=== PATIENT | male | born 1960 | race Caucasian/White ===

== ENCOUNTER 2017-04-25 18:51 | Emergency (ER) | payer BC ==
[2017-04-25 19:04] VITALS: TEMP 98.1
--- NOTE | 2017-04-25 19:53 | ED ---
General Adult HPI - General Chief complaint: Extremity Injury, Lower Stated complaint: Vericose Vein/L leg swelling Source: patient, RN notes reviewed Mode of arrival: ambulatory Limitations: no limitations - History of Present Illness Initial comments: This is a 56-year-old male who presents emergency department complaining of a strange sensation to the anterior aspect of his left lower leg. Patient states he was at work today and thought that there was more swelling than usual. He also thought there was a warm feeling to the muñ[place] area. Patient denied any erythema. He denies any prolonged immobilization. No recent injury. No calf pain. No distal paresthesias. No proximal pain. No shortness of breath or chest pain. No fever or chills. No skin rashes or lesions. Patient does have a history of varicosities and always has more swelling to the left lower leg when compared to the right. He states as been going on for "years." - Related Data Home Medications Medication Instructions Recorded Confirmed Aspirin EC [Ecotrin Low Dose] 81 mg PO DAILY 04/25/17 04/25/17 Losartan/Hydrochlorothiazide 1 tab PO DAILY 04/25/17 04/25/17 [Losartan-Hctz 100-12.5 mg Tab] Allergies Allergy/AdvReac Type Severity Reaction Status Date / Time No Known Allergies Allergy Verified 04/25/17 19:17 Review of Systems ROS Statement: Those systems with pertinent positive or pertinent negative responses have been documented in the HPI. ROS Other: All systems not noted in ROS Statement are negative. Past Medical History Past Medical History: Hypertension History of Any Multi-Drug Resistant Organisms: None Reported Past Surgical History: Hernia Repair, Orthopedic Surgery Additional Past Surgical History / Comment(s): rt bicep tendon repaired, rt thumb surgery Past Anesthesia/Blood Transfusion Reactions: Previous Problems w/ Anesthesia Additional Past Anesthesia/Blood Transfusion Reaction / Comment(s): "diff coming out" Past Psychological History: No Psychological Hx Reported Smoking Status: Never smoker Past Alcohol Use History: Rare Past Drug Use History: None Reported - Past Family History Father Family Medical History: Cancer General Exam - General Exam Comments Initial Comments: Well-developed, well-nourished 56-year-old male in no distress Limitations: no limitations General appearance: alert, in no apparent distress Head exam: Present: atraumatic, normocephalic, normal inspection Eye exam: Present: normal appearance, EOMI. Absent: scleral icterus, conjunctival injection ENT exam: Present: normal exam, mucous membranes moist Neck exam: Present: normal inspection Respiratory exam: Present: normal lung sounds bilaterally. Absent: respiratory distress, wheezes, rales, rhonchi, stridor Cardiovascular Exam: Present: regular rate, normal rhythm, normal heart sounds. Absent: systolic murmur, diastolic murmur, rubs, gallop, clicks Extremities exam: Present: normal inspection, full ROM, normal capillary refill , other (Homans sign is negative, patient does have varicose veins noted which are worse on the left, patient has large varicosity to the anterior aspect of his left lower leg. There is no evidence of infectious process. No erythema. No lymphangitis. No palpable cord. No break in skin integrity. Pedal pulses are 2+ out of 4 bilaterally. Capillary refills less than 2 seconds.). Absent: tenderness, joint swelling, calf tenderness Back exam: Present: normal inspection Neurological exam: Present: alert, oriented X3, CN II-XII intact Psychiatric exam: Present: normal affect, normal mood Skin exam: Present: warm, dry, intact, normal color. Absent: rash Course Vital Signs 04/25/17 19:00 Temperature 98.1 F Pulse Rate 65 Respiratory 18 Rate Blood Pressure 153/85 O2 Sat by Pulse 99 Oximetry - Reevaluation(s) Reevaluation #1: 04/25/17 21:02 Patient was reevaluated and is unchanged. 04/25/17 21:02 Medical Decision Making - Medical Decision Making Patient has no evidence of calf tenderness. Patient does have edema which is worse on the left when compared to the right. DVT well score is 1 Return and follow-up parameters discussed. The patient was found to be hypertensive in the ER today. Findings were reviewed with the patient. Patient was advised to follow-up with the primary care physician for further evaluation of blood pressure. Venous Doppler negative for DVT. Patient was informed of slight increase in BUN /creatinine. - Lab Data Result diagrams: 04/25/17 20:00 04/25/17 20:00 Lab Results 04/25/17 04/25/17 Range/Units 20:00 20:00 WBC 7.6 (3.8-10.6) k/uL RBC 4.94 (4.30-5.90) m/uL Hgb 15.1 (13.0-17.5) gm/dL Hct 44.8 (39.0-53.0) % MCV 90.8 (80.0-100.0) fL MCH 30.6 (25.0-35.0) pg MCHC 33.7 (31.0-37.0) g/dL RDW 14.7 (11.5-15.5) % Plt Count 187 (150-450) k/uL Neutrophils % 49 % Lymphocytes % 38 % Monocytes % 7 % Eosinophils % 2 % Basophils % 1 % Neutrophils # 3.7 (1.3-7.7) k/uL Lymphocytes # 2.9 (1.0-4.8) k/uL Monocytes # 0.5 (0-1.0) k/uL Eosinophils # 0.1 (0-0.7) k/uL Basophils # 0.1 (0-0.2) k/uL Sodium 143 (137-145) mmol/L Potassium 4.3 (3.5-5.1) mmol/L Chloride 106 (98-107) mmol/L Carbon Dioxide 28 (22-30) mmol/L Anion Gap 9 mmol/L BUN 22 H (9-20) mg/dL Creatinine 1.28 H (0.66-1.25) mg/dL Est GFR (MDRD) Af Amer >60 (>60 ml/min/1.73 sqM) Est GFR (MDRD) Non-Af 59 (>60 ml/min/1.73 sqM) Glucose 100 H (74-99) mg/dL Calcium 9.3 (8.4-10.2) mg/dL Disposition Clinical Impression: Varicose vein of leg, Edema of left lower leg due to peripheral venous insufficiency Disposition: HOME SELF-CARE Condition: Good Instructions: Varicose Veins (ED), Leg Edema (ED) Additional Instructions: Ensure that you make a follow-up with your regular physician for reevaluation of her blood pressure and monitoring of her kidney function. The patient was found to be hypertensive in the ER today. Findings were reviewed with the patient. Patient was advised to follow-up with the primary care physician for further evaluation of blood pressure. Return to the ER at once if the symptoms worsen or problems or difficulties arise. Elevate her leg as much as possible. Referrals: Immanuel Vasquez MD [Primary Care Provider] - 1-2 days Time of Disposition: 21:03
[2017-04-25] MEDS ORDERED: TOPICAL SKIN ADHESIVE 1 EACH AMP TOPICAL ONE ×2 (20:04→20:06)
[2017-04-25 20:15] LABS: Anion Gap 9 mmol/L; Blood Urea Nitrogen 22 mg/dL (9-20); Calcium 9.3 mg/dL (8.4-10.2); Carbon Dioxide 28 mmol/L (22-30); Chloride 106 mmol/L (98-107); Glucose 100 mg/dL (74-99); Non-African American GFR(MDRD) 59 (>60 ml/min/1.73 sqM); Potassium 4.3 mmol/L (3.5-5.1); Sodium 143 mmol/L (137-145)
[2017-04-25 20:21] LABS: Basophils # (A) 0.1 k/uL (0-0.2); Basophils % (A) 1 %; CH 31.6; CHCM 35.1; Eosinophils # (A) 0.1 k/uL (0-0.7); Eosinophils % (A) 2 %; HCT 44.8 % (39.0-53.0); HDW 2.64; HGB 15.1 gm/dL (13.0-17.5); Luc # (Auto) 0.27; Luc % (Auto) 4; Lymphocytes # (A) 2.9 k/uL (1.0-4.8); Lymphocytes % (A) 38 %; MCH 30.6 pg (25.0-35.0); MCHC 33.7 g/dL (31.0-37.0); MCV 90.8 fL (80.0-100.0); Mean Platelet Volume 8.8; Monocytes # (A) 0.5 k/uL (0-1.0); Monocytes % (A) 7 %; Neutrophils # (A) 3.7 k/uL (1.3-7.7); Neutrophils % (A) 49 %; RBC 4.94 m/uL (4.30-5.90); RDW 14.7 % (11.5-15.5); WBC 7.6 k/uL (3.8-10.6); WBC (Perox) 7.39
--- NOTE | 2017-04-25 20:54 | US ---
EXAMINATION TYPE: US venous doppler duplex LE LT DATE OF EXAM: 04/25/2017 8:39 PM COMPARISON: NONE CLINICAL HISTORY: Pain. SIDE PERFORMED: Left TECHNIQUE: The lower extremity deep venous system is examined utilizing real time linear array sonog kenna with graded compression, doppler sonography and color-flow sonography. VESSELS IMAGED: External Iliac Vein (EIV) Common Femoral Vein Deep Femoral Vein Greater Saphenous Vein * Femoral Vein Popliteal Vein Small Saphenous Vein * Proximal Calf Veins (* superficial vessels) Left Leg: Negative for DVT No evidence of DVT left leg IMPRESSION: Negative exam. No evidence of deep venous thrombosis in the left leg.
[2017-04-25 21:25] VITALS: BP 136/77; PULSE 54; RESP 16
== END 2017-04-25 21:25 | disposition home or self-care (01) ==
LOC: EC 18:51
DX: I83.892 Varicose veins of left lower extremity with other complications (principal); I73.9 Peripheral vascular disease, unspecified; I10 Essential (primary) hypertension; Z79.82 Long term (current) use of aspirin; Z79.899 Other long term (current) drug therapy
CPT/HCPCS: 36415; 80048; 85025; 99284

== ENCOUNTER → 2019-05-04 | Outpatient (CLI) | payer BC ==
--- NOTE | 2019-05-04 09:40 | US ---
EXAMINATION TYPE: US liver DATE OF EXAM: 05/04/2019 COMPARISON: NONE CLINICAL HISTORY: R74.8 Abn LFTs, TECHNIQUE: Multiple sonographic images of the right upper quadrant are obtained. FINDINGS: EXAM MEASUREMENTS: Liver Length: 15.2 cm Gallbladder Wall: 0.1 cm CBD: 0.4 cm Right Kidney: 10.9 x 5.6 x 5.2 cm PRESS LOADER NOTES: Patient of large body habitus. Pancreas: Obscured by bowel gas Liver: Increased attenuation, decreased visualization of vessels vessels. Intercostal windows are ut ilized due to overlying bowel gas. Gallbladder: No abnormal distention, wall thickening, pericholecystic fluid, or shadowing calculi.E vidence for sonographic Zarate's sign: No CBD: wnl Right Kidney: No hydronephrosis. The inferior pole is obscured by overlying bowel gas IMPRESSION: 1. Echogenic appearance to the liver suggests underlying hepatic steatosis. Correlate with LFTs, lipi d profile, and patient risk factors. 2. No cholelithiasis or biliary ductal dilatation.
--- NOTE | 2019-05-04 10:35 | US ---
EXAMINATION TYPE: US thyroid st tissue head/neck DATE OF EXAM: 05/04/2019 COMPARISON: NONE CLINICAL HISTORY: 58-year-old male E04.9 Goiter. TECHNIQUE: Multiple sonographic images of the thyroid gland are obtained. FINDINGS: GLAND SIZE: Right Lobe: 4.4 x 1.6 x 2.0 cm Overall Parenchyma: homogenous Left Lobe: 4.1 x 1.5 x 1.8 cm Overall Parenchyma: homogeneous Isthmus Thickness: 0.2 cm NODULES RIGHT: # of nodules measured on right: 0 LEFT: # of nodules measured on left: 0 ISTHMUS: # of nodules measured in the isthmus: 0 Bilateral neck scanned, no evidence of lymphadenopathy. IMPRESSION: Normal-sized thyroid gland without discrete nodule. IMPRESSION:
== END | disposition home or self-care (01) ==
LOC: RADUSWWP 07:39
PROVIDERS: ATTEND Family Medicine
DX: E04.9 Nontoxic goiter, unspecified (principal); R74.8 Abnormal levels of other serum enzymes
CPT/HCPCS: 76536; 76705

== ENCOUNTER → 2019-09-23 | Outpatient (CLI) | payer BC ==
--- NOTE | 2019-09-23 08:31 | FL ---
EXAMINATION TYPE: FL sniff test without CXR DATE OF EXAM: 09/23/2019 COMPARISON: CT of the same date HISTORY: Shortness of breath TECHNIQUE: Fluoroscopy. 27 seconds of fluoroscopy time was utilized with 0 images saved as the examin ation was simply done under real-time fluoroscopy. FINDINGS: Real-time fluoroscopic imaging was performed to evaluate the hemidiaphragm excursion. 27 se conds of fluoroscopy time was utilized with 0 images saved as the examination was simply done under r eal-time fluoroscopy. The patient has a CT of the same date. The right hemidiaphragm appears sluggish in comparison to the left however there is no paradoxical motion nor complete paralysis. IMPRESSION: Delayed excursion of the right hemidiaphragm in comparison to the left, possibly related to underlying hepatomegaly. The diaphragm does not appear paradoxical or paralyzed.
--- NOTE | 2019-09-23 12:26 | CT ---
EXAMINATION TYPE: CT chest w con DATE OF EXAM: 09/23/2019 COMPARISON: Chest x-ray 09/15/2019 HISTORY: Shortness of breath CT DLP: 660 mGycm Automated exposure control for dose reduction was used. CONTRAST: CT scan of the chest is performed with IV Contrast, patient injected with 100 ml mL of Isovue 300. FINDINGS: LUNGS: The lungs are grossly clear, there is no concerning parenchymal mass or nodule identified. Mi nimal linear scarring present in the right for lobe There is no pleural effusion or pneumothorax seen . The tracheobronchial tree is patent. MEDIASTINUM: There are no greater than 1 cm hilar or mediastinal lymph nodes. No pericardial effusi on is seen. AORTA: No additional significant abnormality is seen. OTHER: Low-attenuation within the liver may be due to hepatic steatosis. IMPRESSION: No abnormality evident to account for patient's symptoms.
== END | disposition home or self-care (01) ==
LOC: RADCTMAIN 07:16
PROVIDERS: ATTEND Internal Medicine Critical Care Medicine
DX: R06.02 Shortness of breath (principal)
CPT/HCPCS: 76000; 71260; Q9967

== ENCOUNTER 2019-11-17 11:27 | Emergency (ER) | payer BC ==
--- NOTE | 2019-11-17 11:53 | ED ---
Chest Pain HPI - General Chief Complaint: Chest Pain Stated Complaint: chest pain Time Seen by Provider: 11/17/19 11:35 Source: patient Mode of arrival: wheelchair Limitations: no limitations - History of Present Illness Initial Comments: The patient is a 59-year-old male with past medical history of hypertension presents to the emergency department with reported chest pain. I did receive a call from the patient's primary care physician, Dr. Vasquez in regards to the patient. He states the patient has had 3 days worth of chest pressure. The patient ate it makes him feel mildly short of breath. He denies any provocative factors. Denies exertional dyspnea. No ripping or tearing sensation to his back. No radiation of the pain. Denies any unilateral numbness or tingling. He denies a cough or hemoptysis. No fevers or chills. Denies diaphoresis, nausea or vomiting. He went into Dr. Vasquez's office where they've completed an EKG. They found the patient had a junctional rhythm with a right bundle-branch block. He had no old to compare to and therefore he sent the patient into the emergent department for further evaluation. The patient did have a stress test last year by Dr. Ellsworth. States that everything was normal. Denies previous history of cardiac disease. No calf pain or swelling. No lower extremity edema. No recent surgeries or travel. No history of DVT or PE. There are no vomiting, precipitating or modifying factors - Related Data Home Medications Medication Instructions Recorded Confirmed Aspirin EC [Ecotrin Low Dose] 81 mg PO DAILY 04/25/17 11/17/19 Melatonin 5 mg PO HS PRN 11/17/19 11/17/19 amLODIPine BESYLATE/BENAZEPRIL 1 cap PO DAILY 11/17/19 11/17/19 [Lotrel 5-40 MG] diphenhydrAMINE [Benadryl] 25 mg PO HS PRN 11/17/19 11/17/19 Allergies Allergy/AdvReac Type Severity Reaction Status Date / Time No Known Allergies Allergy Verified 11/17/19 13:12 Review of Systems ROS Statement: Those systems with pertinent positive or pertinent negative responses have been documented in the HPI. ROS Other: All systems not noted in ROS Statement are negative. EKG Findings - EKG Comments: EKG Findings:: EKG demonstrates a junctional rhythm with a rate of 58. QRS 104. QTC of 100. There is a incomplete right bundle branch block. No acute ST segment elevations or depressions concerning for ischemic changes Past Medical History Past Medical History: Hypertension Additional Past Medical History / Comment(s): diaphragm issues History of Any Multi-Drug Resistant Organisms: None Reported Past Surgical History: Hernia Repair, Orthopedic Surgery Additional Past Surgical History / Comment(s): rt bicep tendon repaired, rt thumb surgery Past Anesthesia/Blood Transfusion Reactions: Previous Problems w/ Anesthesia Additional Past Anesthesia/Blood Transfusion Reaction / Comment(s): "diff coming out" Past Psychological History: No Psychological Hx Reported Smoking Status: Never smoker Past Alcohol Use History: Rare Past Drug Use History: None Reported - Past Family History Father Family Medical History: Cancer General Exam Limitations: no limitations General appearance: alert, in no apparent distress Head exam: Present: atraumatic, normocephalic, normal inspection Eye exam: Present: normal appearance, PERRL, EOMI. Absent: scleral icterus, conjunctival injection, periorbital swelling ENT exam: Present: normal exam, mucous membranes moist Neck exam: Present: normal inspection. Absent: tenderness, meningismus, lymphadenopathy Respiratory exam: Present: normal lung sounds bilaterally. Absent: respiratory distress, wheezes, rales, rhonchi, stridor Cardiovascular Exam: Present: regular rate, normal rhythm, normal heart sounds. Absent: systolic murmur, diastolic murmur, rubs, gallop, clicks GI/Abdominal exam: Present: soft, normal bowel sounds. Absent: distended, tenderness, guarding, rebound, rigid Extremities exam: Present: normal inspection, full ROM, normal capillary refill. Absent: tenderness, pedal edema, joint swelling, calf tenderness Back exam: Present: normal inspection Neurological exam: Present: alert, oriented X3, CN II-XII intact Psychiatric exam: Present: normal affect, normal mood Skin exam: Present: warm, dry, intact, normal color. Absent: rash Course Vital Signs 11/17/19 11/17/19 11/17/19 11:30 12:00 13:00 Temperature 98.1 F Pulse Rate 66 64 54 L Respiratory 19 19 18 Rate Blood Pressure 164/105 126/82 O2 Sat by Pulse 99 96 96 Oximetry 11/17/19 13:36 Temperature 98 F Pulse Rate Respiratory Rate Blood Pressure O2 Sat by Pulse Oximetry Chest Pain MDM - MDM ER upon arrival the patient was placed into room 6. A thorough history and physical exam was performed. 12-lead EKG was performed and the patient which demonstrates a junctional rhythm with a rate of 58. He does bring the EKG from office. I did recommend laboratory studies and a chest x-ray. Laboratory studies are unremarkable. Troponin is negative. Chest x-ray demonstrates some strandy atelectasis suggested at the left lung base. These results with the patient. I did call Dr. Vasquez and discuss results with him. Dr. Vasquez does recommend discharge with follow-up with Dr. Ellsworth in office. He states that he will take care of the patient's referral. He suggested against hospital admission because of the current Covid pandemic for which the patient did fully agree that he did not want remain hospitalized if not absolutely necessary. I did inform the patient that he should return to the emergency room if it is a new or worsening symptoms. He was also have follow-up with Dr. Ellsworth to fully rule out cardiac etiology for his pain. The patient understood this. He was discharged home in stable condition Disposition Clinical Impression: Chest pain Disposition: HOME SELF-CARE Condition: Stable Instructions (If sedation given, give patient instructions): Chest Pain (ED) Additional Instructions: Please follow-up with your primary care doctor in regards to your symptoms. He will write you a referral to Dr. Ellsworth. I do recommend a stress test and possible echo. Return to the emergency room for any new or worsening symptoms Is patient prescribed a controlled substance at d/c from ED?: No Referrals: Immanuel Vasquez MD [Primary Care Provider] - 1-2 days Justice Ellsworth MD [STAFF PHYSICIAN] - 1-2 days Time of Disposition: 13:23
[2019-11-17 11:55] LABS: Basophils # (A) 0.1 k/uL (0-0.2); Basophils % (A) 1 %; Eosinophils # (A) 0.2 k/uL (0-0.7); Eosinophils % (A) 2 %; HCT 48.3 % (39.0-53.0); HGB 16.1 gm/dL (13.0-17.5); Lymphocytes % (A) 36 %; MCH 29.6 pg (25.0-35.0); MCHC 33.3 g/dL (31.0-37.0); MCV 88.9 fL (80.0-100.0); Mean Platelet Volume 8.8; Monocytes # (A) 0.5 k/uL (0-1.0); Monocytes % (A) 6 %; Neutrophils # (A) 4.3 k/uL (1.3-7.7); Neutrophils % (A) 51 %; Platelet Count 193 k/uL (150-450); RBC 5.43 m/uL (4.30-5.90); RDW 13.3 % (11.5-15.5); WBC 8.4 k/uL (3.8-10.6)
[2019-11-17 12:03] LABS: ALT 36 U/L (4-49); AST 34 U/L (17-59); African American GFR (CKD) >90 (>60 ml/min/1.73 sqM); Albumin 4.6 g/dL (3.5-5.0); Alkaline Phosphatase 67 U/L (38-126); Anion Gap 10 mmol/L; Blood Urea Nitrogen 16 mg/dL (9-20); Calcium 9.5 mg/dL (8.4-10.2); Carbon Dioxide 24 mmol/L (22-30); Chloride 105 mmol/L (98-107); Glucose 93 mg/dL (74-99); Non-African American GFR(CKD) >90 (>60 ml/min/1.73 sqM); Potassium 4.6 mmol/L (3.5-5.1); Sodium 139 mmol/L (137-145); Total Bilirubin 0.6 mg/dL (0.2-1.3); Total Protein 7.4 g/dL (6.3-8.2)
[2019-11-17 12:04] LABS: INR 0.9 (<1.2); Partial Thromboplastin Time 24.4 sec (22.0-30.0); Prothrombin Time 9.9 sec (9.0-12.0)
--- NOTE | 2019-11-17 12:12 | XR ---
EXAMINATION TYPE: XR chest 2V DATE OF EXAM: 11/17/2019 COMPARISON: 09/15/2019 HISTORY: 59-year-old male with chest pain TECHNIQUE: PA and lateral views FINDINGS: Heart normal size. Aorta and pulmonary vasculature within normal limits. Some strandy atelectasis at the left base. No other consolidation or pleural effusion seen. IMPRESSION: Some strandy atelectasis suggested at the left base. No acute process otherwise seen.
[2019-11-17 13:16] VITALS: BP 126/82; PULSE 54; RESP 18
[2019-11-17 13:37] VITALS: TEMP 98
== END 2019-11-17 13:36 | disposition home or self-care (01) ==
LOC: EC 11:27
DX: R07.89 Other chest pain (principal); R06.02 Shortness of breath; I10 Essential (primary) hypertension; Z79.82 Long term (current) use of aspirin; Z79.899 Other long term (current) drug therapy
CPT/HCPCS: 36415; 71046; 80053; 83735; 83880; 84484; 85025; 85610; 85730; 93005; 99285

== ENCOUNTER 2021-02-09 09:33 | Emergency (ER) | payer BC, OTHER ==
--- NOTE | 2021-02-09 10:26 | ED ---
General Adult HPI - General Chief complaint: Extremity Problem,Nontraumatic Stated complaint: Swelling in Right leg/SOB Time Seen by Provider: 02/09/21 09:47 Source: patient, RN notes reviewed Mode of arrival: ambulatory Limitations: no limitations - History of Present Illness Initial comments: 60-year-old male with a past medical history of hypertension, enlarged kidney, diaphragm issues presents to the emergency room for a chief complaint of right l eg swelling. Patient has had swelling in his right leg for the past couple weeks. States it comes and goes. He has also had some shortness of breath. States has been ongoing for years but worsened in the past several months. Patient's eyes primary care provider today who wanted him to come to the ER for evaluation. Patient denies any chest pain.Patient has no other complaints at this time including shortness of breath, chest pain, abdominal pain, nausea or vomiting, headache, or visual changes. - Related Data Home Medications Medication Instructions Recorded Confirmed Aspirin EC [Ecotrin Low Dose] 81 mg PO HS 04/25/17 02/09/21 Rosuvastatin [Crestor] 10 mg PO HS 02/09/21 02/09/21 amLODIPine BES/OLMESARTAN MED 1 tab PO HS 02/09/21 02/09/21 [amLODIPine BES/OLMESARTAN MED 10-40 mg] Allergies Allergy/AdvReac Type Severity Reaction Status Date / Time No Known Allergies Allergy Verified 02/09/21 11:11 Review of Systems ROS Statement: Those systems with pertinent positive or pertinent negative responses have been documented in the HPI. ROS Other: All systems not noted in ROS Statement are negative. Past Medical History Past Medical History: Hypertension Additional Past Medical History / Comment(s): diaphragm issues, enlarged kidney History of Any Multi-Drug Resistant Organisms: None Reported Past Surgical History: Hernia Repair, Orthopedic Surgery Additional Past Surgical History / Comment(s): rt bicep tendon repaired, rt thumb surgery Past Anesthesia/Blood Transfusion Reactions: Previous Problems w/ Anesthesia Additional Past Anesthesia/Blood Transfusion Reaction / Comment(s): "diff coming out" Past Psychological History: No Psychological Hx Reported Smoking Status: Never smoker Past Alcohol Use History: Rare Past Drug Use History: None Reported - Past Family History Father Family Medical History: Cancer General Exam Limitations: no limitations General appearance: alert, in no apparent distress Head exam: Present: atraumatic, normocephalic, normal inspection Eye exam: Present: normal appearance, PERRL, EOMI. Absent: scleral icterus, conjunctival injection, periorbital swelling ENT exam: Present: normal exam, mucous membranes moist Neck exam: Present: normal inspection, full ROM. Absent: tenderness, meningismus, lymphadenopathy Respiratory exam: Present: normal lung sounds bilaterally. Absent: respiratory distress, wheezes, rales, rhonchi, stridor Cardiovascular Exam: Present: regular rate, normal rhythm, normal heart sounds. Absent: systolic murmur, diastolic murmur, rubs, gallop, clicks GI/Abdominal exam: Present: soft, normal bowel sounds. Absent: distended, tenderness, guarding, rebound, rigid Extremities exam: Present: full ROM (Full range of motion right leg), normal capillary refill (cap Refill less than 2 seconds, DP pulse 2+ right lower extremity), pedal edema (Minimal pedal edema noted in the right foot and ankle. Nonpitting.). Absent: other (No erythema noted of the right leg.) Neurological exam: Present: alert Course Vital Signs 02/09/21 02/09/21 09:35 13:00 Temperature 97.8 F 98.0 F Pulse Rate 55 L 54 L Respiratory 20 16 Rate Blood Pressure 126/80 118/72 O2 Sat by Pulse 99 97 Oximetry Medical Decision Making - Medical Decision Making Vitals are stable. 97-99% on room air. EKG nonischemic. Laboratory evaluation unremarkable. Troponin and d-dimer are both negative. Chest x-ray shows no acute cardiopulmonary process. Ultrasound of the right lower leg is negative for DVT. Chest x-ray shows no acute cardiopulmonary process. At this time patient is stable for discharge home. He has had shortness of breath for years worsening over several months. He will need to follow up with primary care and cardiology. At this time there is no chest pain. He will also follow up with primary care for leg edema. He was instructed to elevate the leg to continue to wear his compression socks. He will return here for any worsening symptoms. - Lab Data Result diagrams: 02/09/21 10:22 02/09/21 10:22 Lab Results 02/09/21 02/09/21 02/09/21 Range/Units 10:22 10:22 10:22 WBC 8.1 (3.8-10.6) k/uL RBC 4.97 (4.30-5.90) m/uL Hgb 15.2 (13.0-17.5) gm/dL Hct 43.8 (39.0-53.0) % MCV 88.2 (80.0-100.0) fL MCH 30.7 (25.0-35.0) pg MCHC 34.8 (31.0-37.0) g/dL RDW 13.3 (11.5-15.5) % Plt Count 187 (150-450) k/uL MPV 8.8 Neutrophils % 57 % Lymphocytes % 32 % Monocytes % 7 % Eosinophils % 2 % Basophils % 1 % Neutrophils # 4.7 (1.3-7.7) k/uL Lymphocytes # 2.6 (1.0-4.8) k/uL Monocytes # 0.6 (0-1.0) k/uL Eosinophils # 0.1 (0-0.7) k/uL Basophils # 0.1 (0-0.2) k/uL PT 10.2 (9.0-12.0) sec INR 0.9 (<1.2) APTT 23.0 (22.0-30.0) sec D-Dimer <0.17 (<0.60) mg/L FEU Sodium 139 (137-145) mmol/L Potassium 4.4 (3.5-5.1) mmol/L Chloride 104 (98-107) mmol/L Carbon Dioxide 26 (22-30) mmol/L Anion Gap 9 mmol/L BUN 22 H (9-20) mg/dL Creatinine 0.93 (0.66-1.25) mg/dL Est GFR (CKD-EPI)AfAm >90 (>60 ml/min/1.73 sqM) Est GFR (CKD-EPI)NonAf >90 (>60 ml/min/1.73 sqM) Glucose 103 H (74-99) mg/dL Calcium 9.6 (8.4-10.2) mg/dL Magnesium 2.0 (1.6-2.3) mg/dL Total Bilirubin 0.5 (0.2-1.3) mg/dL AST 26 (17-59) U/L ALT 30 (4-49) U/L Alkaline Phosphatase 67 (38-126) U/L Troponin I (0.000-0.034) ng/mL NT-Pro-B Natriuret Pep pg/mL Total Protein 6.7 (6.3-8.2) g/dL Albumin 4.3 (3.5-5.0) g/dL 02/09/21 02/09/21 Range/Units 10:22 10:22 WBC (3.8-10.6) k/uL RBC (4.30-5.90) m/uL Hgb (13.0-17.5) gm/dL Hct (39.0-53.0) % MCV (80.0-100.0) fL MCH (25.0-35.0) pg MCHC (31.0-37.0) g/dL RDW (11.5-15.5) % Plt Count (150-450) k/uL MPV Neutrophils % % Lymphocytes % % Monocytes % % Eosinophils % % Basophils % % Neutrophils # (1.3-7.7) k/uL Lymphocytes # (1.0-4.8) k/uL Monocytes # (0-1.0) k/uL Eosinophils # (0-0.7) k/uL Basophils # (0-0.2) k/uL PT (9.0-12.0) sec INR (<1.2) APTT (22.0-30.0) sec D-Dimer (<0.60) mg/L FEU Sodium (137-145) mmol/L Potassium (3.5-5.1) mmol/L Chloride (98-107) mmol/L Carbon Dioxide (22-30) mmol/L Anion Gap mmol/L BUN (9-20) mg/dL Creatinine (0.66-1.25) mg/dL Est GFR (CKD-EPI)AfAm (>60 ml/min/1.73 sqM) Est GFR (CKD-EPI)NonAf (>60 ml/min/1.73 sqM) Glucose (74-99) mg/dL Calcium (8.4-10.2) mg/dL Magnesium (1.6-2.3) mg/dL Total Bilirubin (0.2-1.3) mg/dL AST (17-59) U/L ALT (4-49) U/L Alkaline Phosphatase (38-126) U/L Troponin I <0.012 (0.000-0.034) ng/mL NT-Pro-B Natriuret Pep 29 pg/mL Total Protein (6.3-8.2) g/dL Albumin (3.5-5.0) g/dL Disposition Clinical Impression: Leg edema, right, Shortness of breath Disposition: HOME SELF-CARE Condition: Good Instructions (If sedation given, give patient instructions): Leg Edema (ED) Additional Instructions: Please follow-up with your doctor in one to 2 days. You should follow up with cardiology as well. Wear compression stockings. Return to the emergency room for any worsening symptoms. Is patient prescribed a controlled substance at d/c from ED?: No Referrals: Immanuel Vasquez MD [Primary Care Provider] - 1-2 days Robert Smith MD [STAFF PHYSICIAN] - 1-2 days Time of Disposition: 12:34
[2021-02-09 10:33] LABS: Basophils # (A) 0.1 k/uL (0-0.2); Basophils % (A) 1 %; Eosinophils # (A) 0.1 k/uL (0-0.7); Eosinophils % (A) 2 %; HCT 43.8 % (39.0-53.0); HGB 15.2 gm/dL (13.0-17.5); Lymphocytes # (A) 2.6 k/uL (1.0-4.8); Lymphocytes % (A) 32 %; MCH 30.7 pg (25.0-35.0); MCHC 34.8 g/dL (31.0-37.0); MCV 88.2 fL (80.0-100.0); Mean Platelet Volume 8.8; Monocytes # (A) 0.6 k/uL (0-1.0); Monocytes % (A) 7 %; Neutrophils # (A) 4.7 k/uL (1.3-7.7); Neutrophils % (A) 57 %; Platelet Count 187 k/uL (150-450); RBC 4.97 m/uL (4.30-5.90); RDW 13.3 % (11.5-15.5); WBC 8.1 k/uL (3.8-10.6)
[2021-02-09 10:49] LABS: ALT 30 U/L (4-49); AST 26 U/L (17-59); African American GFR (CKD) >90 (>60 ml/min/1.73 sqM); Albumin 4.3 g/dL (3.5-5.0); Alkaline Phosphatase 67 U/L (38-126); Anion Gap 9 mmol/L; Blood Urea Nitrogen 22 mg/dL (9-20); Calcium 9.6 mg/dL (8.4-10.2); Carbon Dioxide 26 mmol/L (22-30); Chloride 104 mmol/L (98-107); Glucose 103 mg/dL (74-99); Non-African American GFR(CKD) >90 (>60 ml/min/1.73 sqM); Potassium 4.4 mmol/L (3.5-5.1); Sodium 139 mmol/L (137-145); Total Bilirubin 0.5 mg/dL (0.2-1.3); Total Protein 6.7 g/dL (6.3-8.2)
[2021-02-09 10:54] LABS: D-Dimer <0.17 mg/L FEU (<0.60); INR 0.9 (<1.2); Prothrombin Time 10.2 sec (9.0-12.0)
--- NOTE | 2021-02-09 10:54 | XR ---
EXAMINATION TYPE: XR chest 2V DATE OF EXAM: 02/09/2021 COMPARISON: 11/17/2019 HISTORY: 60-year-old male shortness of breath, difficulty breathing TECHNIQUE: PA and lateral views FINDINGS: The cardiomediastinal silhouette, aorta, and pulmonary vasculature are within normal limits. Strandy left basilar atelectasis. Otherwise, lungs and pleural spaces are clear. IMPRESSION: No acute cardiopulmonary process.
--- NOTE | 2021-02-09 11:22 | US ---
EXAMINATION TYPE: US venous doppler duplex LE RT DATE OF EXAM: 02/09/2021 11:11 AM COMPARISON: None CLINICAL HISTORY: 60-year-old male edema. Right ankle swelling; SOB SIDE PERFORMED: Right TECHNIQUE: The lower extremity deep venous system is examined utilizing real time linear array sonog kenna with graded compression, doppler sonography and color-flow sonography. FINDINGS: VESSELS IMAGED: Common Femoral Vein Deep Femoral Vein Greater Saphenous Vein * Femoral Vein Popliteal Vein Small Saphenous Vein * Proximal Calf Veins Posterior tibial veins (* superficial vessels) Right Leg: Negative for DVT. Ankle edema channels are noted by US. IMPRESSION: No evidence for DVT within the right lower extremity.
[2021-02-09 13:01] VITALS: BP 118/72; PULSE 54; RESP 16; TEMP 98
== END 2021-02-09 13:00 | disposition home or self-care (01) ==
LOC: EC 09:33
DX: R60.0 Localized edema (principal); R06.02 Shortness of breath; I10 Essential (primary) hypertension; Z79.899 Other long term (current) drug therapy
CPT/HCPCS: 36415; 71046; 80053; 83735; 83880; 84484; 85025; 85379; 85610; 85730; 93005; 99285

== ENCOUNTER → 2021-04-29 | Outpatient (CLI) | payer OTHER ==
[2021-04-29 20:09] LABS: African American GFR (CKD) 85.3 (60.0-200.0); Anion Gap 9.7 mmol/L (4.00-12.00); Carbon Dioxide 27.3 mmol/L (21.6-31.8); Non-African American GFR(CKD) 73.6 (60.0-200.0); Potassium 4.2 mmol/L (3.5-5.5)
== END | disposition home or self-care (01) ==
LOC: LABWHC1 09:52
PROVIDERS: ATTEND Internal Medicine Interventional Cardiology
DX: Z01.810 Encounter for preprocedural cardiovascular examination (principal)
CPT/HCPCS: 36415; 80051; 82565; 84520

== ENCOUNTER → 2022-01-25 | Outpatient (CLI) | payer OTHER ==
[2022-01-25 10:37] LABS: Basophils # (A) 0.03 X 10*3/uL (0.00-0.10); Basophils % (A) 0.4 %; Eosinophils # (A) 0.09 X 10*3/uL (0.04-0.35); Eosinophils % (A) 1.3 %; HCT 46.1 % (39.6-50.0); HGB 15.1 g/dL (13.0-17.0); Immature Grans, Automated 0.1 %; Lymphocytes # (A) 2.48 X 10*3/uL (0.90-5.00); Lymphocytes % (A) 36.5 %; MCH 29.4 pg (27.0-32.0); MCHC 32.8 g/dL (32.0-37.0); MCV 89.7 fL (80.0-97.0); Mean Platelet Volume 11.6 fL (9.5-12.2); Monocytes # (A) 0.65 X 10*3/uL (0.20-1.00); Monocytes % (A) 9.6 %; NRBC Per 100 WBC 0 /100 WBCS (0.0-0.0); Neutrophils # (A) 3.54 X 10*3/uL (1.80-7.70); Neutrophils % (A) 52.1 %; Platelet Count 196 X 10*3/uL (140-440); RBC 5.14 X 10*6/uL (4.40-5.60); RDW 13.5 % (11.5-14.5)
[2022-01-25 11:05] LABS: ALT 36 U/L (10-49); AST 19 U/L (14-35); African American GFR (CKD) 84.7 (60.0-200.0); Albumin 4.6 g/dL (3.8-4.9); Alkaline Phosphatase 67 U/L (41-126); BUN/Creat Ratio 18.45 Ratio (12.00-20.00); Blood Urea Nitrogen 20.3 mg/dL (9.0-27.0); C Reactive Protein <0.30 mg/dL (0.00-0.80); Calcium 9.5 mg/dL (8.7-10.3); Carbon Dioxide 30.3 mmol/L (20.0-27.5); Chloride 103 mmol/L (96-109); Chol/HDL Ratio 3.37 Ratio; Creatine Kinase 112 U/L (35-257); Glucose 107 mg/dL (70-110); LDL Cholesterol,Calculated 65.1 mg/dL (0.0-131.0); Non-African American GFR(CKD) 73.1 (60.0-200.0); Potassium 4.7 mmol/L (3.5-5.5); Sodium 141 mmol/L (135-145); Total Protein 6.6 g/dL (6.2-8.2); VLDL Calculation 18.58 mg/dL (5.00-40.00)
== END | disposition home or self-care (01) ==
LOC: LABWHC1 07:19
PROVIDERS: ATTEND Family Medicine
DX: E78.00 Pure hypercholesterolemia, unspecified (principal); I10 Essential (primary) hypertension
CPT/HCPCS: 36415; 80053; 80061; 82550; 83036; 85025; 86140

== ENCOUNTER 2022-03-09 09:11 | Day surgery (SDC) | payer BC, OTHER ==
[2022-03-08 10:04] VITALS: BMI 34.2
[~2022-03-09 09:11] MED LIST: LACTATED RINGERS 1,000 ML IV SCH; LIDOCAINE 1% (10MG/ML) FOR IV START INTRADERMA PRN
[2022-03-09 09:43] VITALS: RESP 16; TEMP 97.8
[2022-03-09] MEDS ORDERED: LIDOCAINE 2% INJ 20 MG/ML (2 ML VIAL) ONE (10:24)
[2022-03-09] MEDS ORDERED: PROPOFOL 10 MG/ML 20 ML VIAL IV ONE (10:24)
--- NOTE | 2022-03-09 10:29 | P.PCN ---
Date of Procedure: 03/09/22 Procedure(s) Performed: Brief history: Patient is a pleasant 67-year-old white male scheduled for an elective upper endoscopy as well as colonoscopy as a part of evaluation of right upper quadrant abdominal pain for the last 2 years duration. Symptoms have been going on an intermittent basis. Has occasional heartburn. He also has some change in bowel habits. Procedure performed: Esophagogastroduodenoscopy with biopsy Colonoscopy with biopsy and snare polypectomy Preoperative diagnosis: Abdominal pain, heartburn and change in bowel habits Anesthesia: MAC Procedure: After informed consent was obtained from the patient was brought into the endoscopy unit and IV sedation was administered by anesthesia under continuous monitoring. Initially upper endoscopy was done. The Olympus GF 160 video endoscope was inserted inserted into the mouth and esophagus intubated without any difficulty and was gradually advanced into the stomach and duodenum and carefully examined. The bulb and second part of the duodenum appeared normal. The scope was then withdrawn into the stomach adequately insufflated with air and upon careful examination the antrum had mild gastritis and biopsies were done from this area. In the distal body of the stomach along the greater curvature there was a 2 cm patch of friable mucosa with some erythema noted and this was biopsied. Mucosa of the body, cardia and fundus appeared normal. The scope was then withdrawn into the esophagus. The GE junction was located at 40 cm to the incisors. It appeared regular with no erythema erosions or ulcerations. Rest of the esophagus appeared normal. Patient tolerated the procedure well. At this time the patient continued to remain sedation. Initial digital rectal examination was normal. Olympus CF 160 video colonoscope was then inserted into the rectum and gradually advanced to the cecum without any difficulty. Careful examination was performed as the scope was gradually being withdrawn. The prep was excellent. The cecum, 2 polyps measuring 3 mm and 5 mm removed by snare polypectomy. In the ascending colon there was a 3 mm polyp removed by cold biopsy and a 5 mm polyp that was removed by snare polypectomy. Rest of the ascending colon, transverse colon, descending colon, sigmoid colon and rectum appeared normal. Scattered sigmoid diverticula cyst. Retroflexion was performed in the rectum and small internalwere noted. Patient tolerated the procedure well. Impression: 1. Upper endoscopy revealed mild antral gastritis and a small area of mucosal erythema in the distal body the stomach status post multiple biopsies 2. Colonoscopy revealed 3 mm and 5 mm cecal polyp status post polypectomy, 5 mm ascending colon polyp serous posterior polypectomy and a 3 mm ascending colon polyp status post cold biopsy. Moderate sigmoid diverticulosis and small internal hemorrhoids Recommendations: Findings of this examination were discussed with the patient as well as his family. He was advised to follow with the biopsy results. If the biopsy was adenoma he can have a repeat colonoscopy in 5 years.
[2022-03-09 11:10] VITALS: PULSE 51
[2022-03-09 11:32] VITALS: BP 110/69
--- NOTE | 2022-03-09 11:39 | P.PCN ---
Date of Procedure: 03/09/22 Procedure(s) Performed: BRIEF HISTORY: Patient is a 61-year-old pleasant white male scheduled for an elective colonoscopy as a part of screening for colon cancer and family history of colon cancer. His dad was diagnosed with colon cancer at age 74. PROCEDURE PERFORMED: Colonoscopy with biopsy. PREOPERATIVE DIAGNOSIS: Screening for colon cancer and family history of colon cancer. IV sedation per Anesthesia. PROCEDURE: After informed consent was obtained, the patient, was brought into the endoscopy unit. IV sedation was administered by Anesthesia under continuous monitoring. Digital rectal examination was normal. Initially the Olympus CF-160 flexible video colonoscope was then inserted in the rectum, gradually advanced into the cecum without any difficulty. Careful examination was performed as the scope was gradually being withdrawn. Ileocecal valve and the appendiceal orifice were visualized and appeared normal. Prep was excellent. Mucosa of the cecum, ascending colon, appeared normal. The transverse colon there was a 5 mm sessile polyp removed by cold biopsy. Rest of the transverse colon, descending colon, sigmoid colon, and rectum appeared normal. Scattered sigmoid diverticulosis seen. Retroflexion was performed in the rectum and small internal hemorrhoids were seen. The patient tolerated the procedure well. IMPRESSION: 5 mm transverse colon polyp status post cold biopsy Scattered sigmoid diverticula Small internal hemorrhoids. RECOMMENDATIONS: Findings of this examination were discussed with the patient as well as his family. He was advised to follow with the biopsy results and have a repeat colonoscopy in 5 years from now because of the family history of colon cancer.
== END 2022-03-09 11:43 | disposition home or self-care (01) ==
LOC: ORWHC2ENDO 09:11
PROVIDERS: ATTEND Internal Medicine Gastroenterology
DX: Z12.11 Encounter for screening for malignant neoplasm of colon (principal); K63.5 Polyp of colon; K57.30 Diverticulosis of large intestine without perforation or abscess without bleeding; K64.8 Other hemorrhoids; Z80.0 Family history of malignant neoplasm of digestive organs; I10 Essential (primary) hypertension; K76.0 Fatty (change of) liver, not elsewhere classified; Z79.899 Other long term (current) drug therapy; Z79.82 Long term (current) use of aspirin
CPT/HCPCS: 88305; 45380; J2704; J2001

== ENCOUNTER → 2023-02-28 | Outpatient (CLI) | payer BC ==
[2023-02-28 20:12] LABS: ALT 24 U/L (10-49); AST 20 U/L (14-35); Albumin 4.4 d/dL (3.8-4.9); Albumin/Globulin Ratio 2.32 Ratio (1.60-3.17); Alkaline Phosphatase 67 U/L (41-126); Blood Urea Nitrogen 22.4 mg/dL (9.0-27.0); Calcium 9.7 mg/dL (8.7-10.3); Carbon Dioxide 25.5 mmol/L (21.6-31.8); Chloride 102 mmol/L (96-109); Chol/HDL Ratio 3.74 Ratio; Creatine Kinase 78 U/L (35-257); Globulin 1.9 d/dL (1.6-3.3); Glucose 91 mg/dL (70-110); LDL Cholesterol,Calculated 108.1 mg/dL (0.0-131.0); Potassium 4.2 mmol/L (3.5-5.5); Sodium 138 mmol/L (135-145); Total Bilirubin 0.8 mg/dL (0.3-1.2); Total Protein 6.3 d/dL (6.2-8.2); VLDL Calculation 10.58 mg/dL (5.00-40.00)
[2023-02-28 20:13] LABS: Basophils # (A) 0.05 X 10*3/uL (0.00-0.10); Basophils % (A) 0.8 %; Eosinophils # (A) 0.11 X 10*3/uL (0.04-0.35); Eosinophils % (A) 1.8 %; HCT 43.9 % (39.6-50.0); Lymphocytes # (A) 2.64 X 10*3/uL (0.90-5.00); Lymphocytes % (A) 43.1 %; MCH 30.2 pg (27.0-32.0); MCHC 34.2 d/dL (32.0-37.0); MCV 88.5 FL (80.0-97.0); Mean Platelet Volume 11.9 FL (9.5-12.2); Monocytes # (A) 0.65 X 10*3/uL (0.20-1.00); Monocytes % (A) 10.6 %; NRBC Per 100 WBC 0 X 10*3/uL (0.00-0.01); Neutrophils # (A) 2.66 X 10*3/uL (1.80-7.70); Neutrophils % (A) 43.5 %; Platelet Count 201 X 10*3/uL (140-440); RBC 4.96 X 10*6/uL (4.40-5.60); RDW 13.7 % (11.5-14.5); WBC 6.12 X 10*3/uL (4.50-10.00)
== END | disposition home or self-care (01) ==
LOC: LABWHC1 15:38
PROVIDERS: ATTEND Family Medicine
DX: Z12.5 Encounter for screening for malignant neoplasm of prostate (principal); I10 Essential (primary) hypertension; E78.00 Pure hypercholesterolemia, unspecified
CPT/HCPCS: 36415; 80053; 80061; 82550; 84153; 85025